=== PATIENT | female | born 1935 | race Caucasian/White ===

== ENCOUNTER 2017-03-07 14:14 | Emergency (ER) | payer MEDICARE ==
[~2017-03-07 14:14] MED LIST: CALCIUM 600 + D1 TA1 PO; LIPITOR20 MG PO; LORTAB 7.5-5001 TAB; TYLENOL EXTRA500 M1 PO
[2017-03-07] MEDS ORDERED: ALLERGY MED (14:22)
== END 2017-03-07 14:50 | disposition home or self-care (01) ==
LOC: SED 14:14
DX: L03.115 Cellulitis of right lower limb (principal); E78.5 Hyperlipidemia, unspecified; Z88.2 Allergy status to sulfonamides
CPT/HCPCS: 29530; 99283

== ENCOUNTER → 2017-04-23 | Outpatient (CLI) | payer MEDICARE ==
[~2017-04-23] MED LIST changes: +ALLERGY MED
--- NOTE | ~2017-04-23 | MY29 ---
[facility] A Service [facility] RADIOLOGY TEXT RESULTS PATIENT: SWETA BEYER LOCATION: [facility] : 37 UNIT #: [id number] AGE: [address]: Momo Cutler MD SEX: F ORDER DR: [id number] [facility] [address]. [place], [place] [address] [id number] O MR#: [id number] Acc #: [id number] NAME: SWETA BEYER : 1935 SEX: F STUDY DATE/TIME: 04/23/2017 8:49 UNIT: [facility] ROOM: STUDY DESCRIPTION: MY FELTON SCREENING W/ CAD BILAT Attending Physician: Momo Cutler M.D. Referring Physician: Momo Cutler M.D. Ordering Physician: Momo Cutler M.D. Primary Care Physician: Momo Cutler M.D. MEDICAL IMAGING REPORT This report is preliminary unless electronic signature is present EXAM Digital screening mammogram, 04/23/2017, [facility]. HISTORY 81-year-old woman; positive family history. Annual screening. COMPARISON Comparison mammograms date to 08/08/2007, with most recent 04/19/2016. FINDINGS Digital imaging of each breast was completed utilizing a two-view examination of each breast in craniocaudal and mediolateral-oblique projections. Review and interpretation of digital mammograms include a second review in conjunction with FDA-approved CAD device. There is a normal parenchymal presentation bilaterally consistent with the patient's age. There are no breast masses imaged and no parenchymal asymmetry is visualized. There are no suspicious microcalcifications and I see no focal architectural disturbance. NOTE: Breast parenchyma is predominantly fatty replaced. IMPRESSION Negative screening digital mammogram. One-year followup recommended. Patients over the age of 40 are entered into a reminder system with target due date for the next mammogram. A result letter will also be sent to the patient. BIRADS: 1 Negative Dictated by... [facility] A Service [facility] RADIOLOGY TEXT RESULTS PATIENT: SWETA BEYER LOCATION: [facility] : 37 UNIT #: [id number] AGE: [address]: Momo Cutler MD SEX: F ORDER DR: Bishnu Ybarra M.D. THIS IS AN ELECTRONICALLY VERIFIED REPORT Bishnu Ybarra M.D. at 04/23/2017 3:31 PM [place] TD: 04/23/2017 14:43 JOB #: [id number] MEDICAL IMAGING REPORT Page 1 of 1 COPY
== END | disposition home or self-care (01) ==
LOC: CWCC 08:30
DX: Z12.31 Encounter for screening mammogram for malignant neoplasm of breast (principal); Z80.3 Family history of malignant neoplasm of breast
CPT/HCPCS: G0202